=== PATIENT | male | born 1990 | race Caucasian/White ===

== ENCOUNTER 2017-04-09 13:10 | Emergency (ER) | payer SELFPAY | END 2017-04-09 15:12 | disposition home or self-care (01) | LOC: M ED 13:10 | DX: S16.1XXA Strain of muscle, fascia and tendon at neck level, initial encounter (principal); S00.01XA Abrasion of scalp, initial encounter; V80.42XA Occupant of animal-drawn vehicle injured in collision with car, pick-up truck, van, heavy transport vehicle or bus, initial encounter; Y92.410 Unspecified street and highway as the place of occurrence of the external cause; Y93.9 Activity, unspecified | CPT/HCPCS: 70450 ==

== ENCOUNTER → 2024-11-06 | Outpatient (CLI) | payer SELFPAY | LOC: M WUC 12:21 | PROVIDERS: ATTEND Nurse Practitioner Family | DX: M25.462 Effusion, left knee (principal) ==